=== PATIENT | female | born 1995 | race Asian ===

== ENCOUNTER 2021-03-15 14:43 | Emergency (ER) | payer MEDICAID ==
[~2021-03-15] VITALS: Ht 149.9 cm; Wt 63.5 kg
[2021-03-15 14:52] VITALS: BP_SYST 123
[2021-03-15 15:15] VITALS: BP_SYST 123
== END 2021-03-15 15:15 | disposition home or self-care (01) ==
LOC: SED 14:43
DX: S56.911A Strain of unspecified muscles, fascia and tendons at forearm level, right arm, initial encounter (principal); F12.90 Cannabis use, unspecified, uncomplicated; Z88.6 Allergy status to analgesic agent; W22.01XA Walked into wall, initial encounter; Y93.89 Activity, other specified; Y92.89 Other specified places as the place of occurrence of the external cause; Y99.8 Other external cause status
CPT/HCPCS: 99282

== ENCOUNTER 2023-02-03 00:05 | Emergency (ER) | payer MEDICAID ==
[~2023-02-03] VITALS: Ht 149.9 cm; Wt 61.2 kg
[2023-02-03 00:20] VITALS: BP_SYST 129; PULSE 119; RESP 19; TEMP 97.9; O2SAT 97
[2023-02-03] MEDS ORDERED: MORPHINE 4 MG INJ. 4 MG/ML VIAL IVP ONE (00:30)
[2023-02-03] MEDS ORDERED: NACL 0.9% 1,000 ML IV ONE (00:30)
[2023-02-03] MEDS ORDERED: HYDR-3927 PO (00:38)
[2023-02-03] MEDS ORDERED: ONDA8TAB60 PO (00:38)
[2023-02-03 02:00] VITALS: BP_SYST 166; PULSE 124; RESP 16; TEMP 98.8; O2SAT 98
== END 2023-02-03 02:00 | disposition home or self-care (01) ==
LOC: SED 00:05
DX: R10.9 Unspecified abdominal pain (principal); R11.0 Nausea; Z88.6 Allergy status to analgesic agent; Z88.8 Allergy status to other drugs, medicaments and biological substances; Z79.899 Other long term (current) drug therapy
CPT/HCPCS: 99283; 96360; J2270; J7030

== ENCOUNTER 2023-03-03 22:50 | Emergency (ER) | payer MEDICAID ==
[~2023-03-03] VITALS: Ht 149.9 cm; Wt 65.8 kg
[~2023-03-03 22:50] MED LIST: HYDR-3927 PO; ONDA8TAB60 PO
[2023-03-03 22:55] VITALS: BP_SYST 120; PULSE 93; RESP 18; TEMP 97.2; O2SAT 98
[2023-03-03] MEDS ORDERED: cefTRIAXone 1 GM in LIDOCAINE 1%, 20 ML MDV 2.1 ML IM ONE (23:30)
[2023-03-03 23:50] VITALS: BP_SYST 118; PULSE 90; RESP 20; O2SAT 98
== END 2023-03-03 23:55 | disposition home or self-care (01) ==
LOC: SED 22:50
DX: T83.512A Infection and inflammatory reaction due to nephrostomy catheter, initial encounter (principal); F17.200 Nicotine dependence, unspecified, uncomplicated; Z87.442 Personal history of urinary calculi; Z88.6 Allergy status to analgesic agent; Z88.8 Allergy status to other drugs, medicaments and biological substances; Z79.899 Other long term (current) drug therapy
CPT/HCPCS: 99283; 96372; J0696; J2001

== ENCOUNTER 2023-10-07 10:14 | Emergency (ER) | payer MEDICAID ==
[2023-10-07 11:08] LABS: BASOPHILS % (AUTO) 0.5 % (0.0-2.0); EOSINOPHILS % (AUTO) 0.2 % (0.0-4.0); HEMATOCRIT 41.7 % (36-48); HEMOGLOBIN 14.5 g/dL (12.0-16.0); LYMPHOCYTES # (AUTO) 1.7 K/uL (1.0-5.5); LYMPHOCYTES % (AUTO) 20.7 % (20.5-51.5); MEAN CORPUSCULAR HEMOGLOBIN 33 pg (27-31); MEAN CORPUSCULAR HGB CONC 35 % (32-36); MEAN CORPUSCULAR VOLUME 95 fL (79.0-98.0); MONOCYTES # (AUTO) 0.6 K/uL (0.0-1.0); MONOCYTES % (AUTO) 6.6 % (1.7-9.3); PLATELET COUNT (AUTO) 353 K/uL (130-430); RED BLOOD CELL COUNT(AUTO) 4.39 MIL/uL (4.2-6.2); WHITE BLOOD COUNT (AUTO) 8.4 K/uL (4.8-10.8)
[2023-10-07 11:11] LABS: SERUM HCG (QUALITATIVE) NEGATIVE (NEGATIVE)
[2023-10-07 11:16] LABS: ANION GAP 3 (5-15); CALCIUM 9.1 mg/dL (8.4-11.0); CARBON DIOXIDE 31 mmol/L (23-29); CHLORIDE 105 mmol/L (98-107); CREATININE 0.69 mg/dL (0.55-1.30); GFR AFRICAN AMERICAN 132 mL/min (>90); GLUCOSE 103 mg/dL (74-106); SODIUM SERUM 139 mmol/L (136-145); UREA NITROGEN, BLOOD 12 mg/dL (8-21)
[2023-10-07 11:17] LABS: GFR NON AFRICAN-AMERICAN 109 mL/min (>90)
[2023-10-07 11:29] LABS: ACETAMINOPHEN < 1 ug/mL (1-30); ALANINE AMINOTRANSFERASE 23 U/L (12-78); ALCOHOL, BLOOD < 3 mg/dL (<10); AMYLASE 55 U/L (0-100); ASPARTATE AMINOTRANSFERASE 13 U/L (10-37); BILIRUBIN,DIRECT 0.1 mg/dL (0.0-0.3); CREATINE KINASE, TOTAL 177 U/L (26-192); LIPASE 31 U/L (16-77); SALICYLATE 3 mg/dL (3-30); TOTAL BILIRUBIN 0.6 mg/dL (0.0-1.0); TOTAL PROTEIN, SERUM 8.4 g/dL (6.4-8.3)
[2023-10-07 11:36] LABS: ACETONE, SERUM NEGATIVE (NEGATIVE)
== END 2023-10-07 11:04 | disposition left against medical advice (07) ==
LOC: SED 10:14
DX: Z02.2 Encounter for examination for admission to residential institution (principal); F12.90 Cannabis use, unspecified, uncomplicated; F15.10 Other stimulant abuse, uncomplicated; Z88.6 Allergy status to analgesic agent; Z88.8 Allergy status to other drugs, medicaments and biological substances; Z79.899 Other long term (current) drug therapy
CPT/HCPCS: 99283; 80076; 80048; 82009; 82150; 82550; 84703; 83690; 85025; 36415; 83605; 82397; G0482; G0480; G0481